=== PATIENT | male | born 1940 | race Caucasian/White ===

== ENCOUNTER 2022-08-27 10:03 | Outpatient (CLI) | payer MEDICARE, SELFPAY ==
[2022-08-27 10:56] LABS: Albumin* 4.7 g/dL (3.3-5.0)
[2022-08-27 10:57] LABS: Chloride* 103 mmol/L (96-114); Potassium* 4.2 mmol/L (3.6-5.1); Sodium* 140 mmol/L (135-149)
[2022-08-27 10:59] LABS: Aspartate Amino Transferase* 22 U/L (12-35); Bilirubin Total* 1.1 mg/dL (0.1-1.5); Blood Urea Nitrogen* 25 mg/dL (7-30); Carbon Dioxide* 29 mmol/L (20-32); Cholesterol* 199 mg/dL (90-199); Creatinine* 1.1 mg/dL (0.5-1.5); Estimated Glomerular Filt Rate 68 ml/min; Total Protein* 7.4 g/dL (6.0-8.3)
[2022-08-27 11:00] LABS: Alanine Aminotransferase* 18 U/L (4-50); Alkaline Phosphatase* 57 U/L (40-150); Calcium* 9.7 mg/dL (8.4-10.6); Glucose* 110 mg/dL (60-115); HDL Cholesterol* 63 mg/dL (>=40); LDL Cholesterol Calculated 117 mg/dL (<100); Triglycerides* 96 mg/dL (40-149)
[2022-08-27 11:29] LABS: PSA Screen* 4.07 ng/mL (0.10-4.00)
== END 2022-08-27 10:04 | disposition home or self-care (01) ==
PROVIDERS: PCP Family Medicine; Visit Provider Family Medicine
DX: Z00.00 Encounter for general adult medical examination without abnormal findings (principal); E78.5 Hyperlipidemia, unspecified; C61 Malignant neoplasm of prostate; I10 Essential (primary) hypertension
CPT/HCPCS: 80053; 80061; 84153

== ENCOUNTER 2023-09-03 09:08 | Outpatient (CLI) | payer MEDICARE, SELFPAY ==
--- OUTSIDE RECORDS SUMMARY | 2023-09-09 15:56 | XMS_ITS | Clinical Summary ---
Author Name Unknown Organization [facility] Address [place], [place] [address] Care Team Providers Care Bundle Packer Name Role Phone Haja Thomas Primary Care Provider Unavail able Allergies No known active allergies Medications Medication Sig Dispensed Refills Start Date End Date Status TRIAMTERENE-HYDROCHL OROTHIAZIDE 37.5 MG-25 MG CAP 1 tab q day 0 07/31/2008 Active LISINOPRIL 20 MG TAB 1 tab q day 0 07/31/2008 Act peng TRAVATAN Z 0.004 % EYE DROPS 1 drop at HS in each eye 0 07/31/2008 Active diazepam (VALIUM) 10 mg tablet Take 1 tablet by mouth. Take 1 tab 1 hour prior to procedure 1 tablet 0 09/15/2011 Active diazepam (VALIUM) 10 mg tablet Take 1 tab 1 hour prior to procedure. 1 tablet 0 02/07/2013 Active Active Problems Problem Noted Date Diagnosed Date Benign neoplasm of colon 08/26/2009 Overview: Colonoscopy 07/2009 polyps repeat in 3 years Colonoscopy 04/2013 hyperplastic polyp repeat in 5 years Social History Tobacco Use Types Packs/Day Years Used Date Smoking Tobacco: Former Cigarettes Q uit: 08/23/1995 Smokeless Tobacco: Never Tobacco Cessation:Counseling Given: Yes Comments:quit 1994 Alcohol Use Standard Drinks/Week Comments Yes 0 (1 standard drink = 0.6 oz pur e alcohol) occ Sex and Gender Information Value Date Recorded Sex Assigned at Not on file Gender Identity Not on file Sexual Orientation Not on file Obstetrics History Last Filed Vital Signs Vital Sign Reading Time Taken Comments Blood Pressure 159/77 05/23/2013 8:44 AM CDT Pulse 62 05/23/2013 8:44 AM CDT Temperature 36.8 ??C (98.2 ??F) 05/23/2013 8:42 AM CD T Respiratory Rate - - Oxygen Saturation 97% 05/23/2013 8:42 AM CDT Inhaled Oxygen Concentration - - Weight 82.8 kg (182 lb 9.6 oz) 05/23/2013 8:42 A M CDT Height 172.7 cm (5' 8) 05/23/2013 8:42 AM CDT Body Mass Index 27.76 05/23/2013 8:42 AM CDT Plan of Treatment Health Maintenance Due Date Last Done Comments COVID-19 vaccine series (#1) 1942 Tdap 1953 Depression screening for age 12+ 1954 BMI (ht and wt on same day) for age 18+ 1960 Tetanus booster 1962 Zoster (shingles) series for age 50+ (1 of 2) 06/17/19 92 Pneumococcal series for age 65+ (1 of 1 - PCV) 007 Influenza for age 65+ 04/23/2023 Care Teams Bundle Packer Relationship Specialty Start Date End Date Haja Thomas PCP - General 03/29/06
--- OUTSIDE RECORDS SUMMARY | 2023-09-09 15:56 | XMS_ITS | Clinical Summary ---
Author Name Unknown Organization [facility] Address [address] [place] [address] Care Team Providers Care Gas Engine Operator Name Role Phone Kai Thomas MD Primary Care Provider + [phone] Source Comments You are receiving this document as you are listed as the primary care provider,follow-up provider, or the patient has been referred to you for consultation.This is in compliance with the Medicare and[facility] EHR Incentive Program,which states Providers who transition their patient to another setting of careor provider of care or refers their patient to another provider of care shouldprovide summary care record for each transition of care or referral. [facility] Allerg[facility] No known active allergies Medications Medication Sig Dispensed Refills Start Date End Date Status dorzolamide-timolol (COSOPT) 22.3-6.8 MG/ML eye drop solution Place 1 Drop into both eyes two times a day. 98 12/15/2018 Active ketoconazole (NIZORAL) 2 % shampoo 120 mL 11 12/15/2018 Active hydroCHLOROthiazide 12.5 MG capsule Take 1 Capsule by mouth daily. 90 Capsule 3 12/15/2018 Active lisinopril (ZESTRIL) 40 MG tablet Take 1 Tablet by mouth daily. 90 Tablet 3 12/15/2018 Active metoprolol tartrate (LOPRESSOR) 25 MG tablet Take 1 Tablet by mouth two times a day. 180 Tablet 3 12/15/2018 Active latanoprost (XALATAN) 0.005 % eye drop solution Place 1 Drop into both eyes every evening. 0 12/15/2018 Active aspirin 81 MG tablet Take 1 Tablet by mouth daily. 100 Tablet 3 12/15/2018 Active Active Problems Problem Noted Date Diagnosed Date Essential hypertension 01/03/2019 History of prostate cancer 01/03/2019 History of degenerative disc disease 01/03/2019 Osteoarthritis of multiple joints 01/03/2019 Tear of medial meniscus of knee joint 01/03/2019 Tobacco use 01/03/2019 Polyp of colon 01/03/2019 Bilateral renal cysts 01/03/2019 Diverticulosis of intestine without bleeding Family history of colon cancer 01/03/2019 Hyperlipidemia 01/03/2019 Glaucoma 01/03/2019 Nephrolithiasis 01/03/2019 Mitral valve insufficiency 01/03/2019 History of mitral valve repair 01/03/2019 Pulmonary nodule 01/03/2019 Psoriasis 01/03/2019 Social History Tobacco Use Types Packs/Day Years Used Date Smoking Tobacco: Former Smokeless Tobacco: Never Alcohol Use Standard Drinks/Week Comments Yes 0 (1 standard drink = 0.6 oz pur e alcohol) very little Sex and Gender Information Value Date Recorded Sex Assigned at Not on file Gender Identity Not on file Sexual Orientation Not on file Last Filed Vital Signs Vital Sign Reading Time Taken Comments Blood Pressure 181/82 01/03/2019 9:12 AM CDT Pulse 56 01/03/2019 9:12 AM CDT Temperature - - Respiratory Rate - - Oxygen Saturation - - Inhaled Oxygen Concentration - - Weight 85.3 kg (188 lb) 01/03/2019 9:12 AM CDT Height 175.3 cm (5' 9) 01/03/2019 9:12 AM CDT Body Mass Index 27.76 01/03/2019 9:12 AM CDT Plan of Treatment Health Maintenance Due Date Last Done Comments COVID-19 Vaccine (#1) 1942 Adult Preventive Visit 1960 Zoster/Shingles (2 of 2) 02/01/2021 12/07/2020 Influenza (#1) 2023 05/24/2019, 0803/2018, 04/10/2017, Additional history exists DTaP/Tdap/Td (2 - Tdap) 09/19/2028 09/19/2018 Pneumococcal 65+ Yrs Completed 09/02/2015, 08/22/20 14 HepA Aged Out No longer eligi ble based on patient's age to complete this topic HepB Aged Out No longer eligi ble based on patient's age to complete this topic Hib Aged Out No longer eligi ble based on patient's age to complete this topic IPV (Polio) Aged Out No longer eligi ble based on patient's age to complete this topic MCV4 Aged Out No longer eligi ble based on patient's age to complete this topic Care Teams Gas Engine Operator Relationship Specialty Start Date End Date Kai Thomas MD [address] [place] [address] PCP - General 12/13/18
== END 2023-09-03 09:09 | disposition home or self-care (01) ==
LOC: NFLDREF 09-09 15:53
PROVIDERS: PCP Family Medicine; Referring Provider Family Medicine; Visit Provider Family Medicine
DX: E78.5 Hyperlipidemia, unspecified (principal); Z12.5 Encounter for screening for malignant neoplasm of prostate
CPT/HCPCS: 80053; 80061; G0103

== ENCOUNTER 2024-05-02 08:57 | Emergency (ER) | payer MEDICARE, SELFPAY ==
[2024-05-02 09:01] VITALS: BP 141/78; PULSE 69; RESP 17; TEMP 37.1; O2SAT 97; BMI 27.4
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
--- NOTE | 2024-05-02 09:13 | CRLHL7_ITS ---
For Patients: As a result of the Cures Act, medical imaging exams and procedure reports are released immediately into your electronic medical record. You may view this report before your referring provider. If you have questions, please contact your health care provider. INDICATION: Right lower anterior rib pain COMPARISON: None. TECHNIQUE: Three views chest and right ribs. FINDINGS: Acute appearing nondisplaced anterolateral right 8th and 9th rib fractures. No other fracture seen. Postoperative Fowler. Valve prosthesis or valve support. Median sternotomy wires. Atherosclerotic vascular calcifications. No focal or diffuse lung opacities. No pneumothorax. No pleural effusion. IMPRESSION: Acute nondisplaced right 8th and 9th rib fractures. No pneumothorax or hemothorax. Dictated by Shital Borden MD @ 05/02/2024 9:47:58 AM (Electronically Signed)
--- OUTSIDE RECORDS SUMMARY | 2024-05-02 09:24 | XMS_ITS | Clinical Summary ---
Author Organization [employer] Address [address] [place] [address] Care Team Providers Care Construction Quality Control Manager Name Role Phone Kai Thomas MD Primary Care Provider [phone] Source Comments You are receiving this document as you are listed as the primary care provider,follow-up provider, or the patient has been referred to you for consultation.This is in compliance with the Medicare and[facility] EHR Incentive Program,which states Providers who transition their patient to another setting of careor provider of care or refers their patient to another provider of care shouldprovide summary care record for each transition of care or referral. [employer] Allergies No known active allergies Medications Medication [...] 1 Drop into both eyes every evening. 12/15/2018 Active aspirin 81 MG tablet Take [...] Health Maintenance Due Date Last Done Comments Adult Preventive Visit 1960 Zoster/Shingles (2 of 2) 02/01/2021 12/07/2020 COVID-19 Vaccine ( season) 2024 10/26/2020, 10/05/2020 Influenza (#1) 2024 05/24/2019, 03/23, 04/10/2017, Additional history exists DTaP/Tdap/Td (2 - [...] age to complete this topic Care Teams Construction Quality Control Manager Relationship Specialty Start Date End Date Kai Thomas MD [address] [place] [address] PCP - General 12/13/18
--- OUTSIDE RECORDS SUMMARY | 2024-05-02 09:24 | XMS_ITS | Clinical Summary ---
Author Organization [employer] [facility] Address [place], [place] [address] Care Team Providers Care Superintendent Geophysical Laboratory Name Role Phone Haja Thomas Primary Care [...] Diagnosed Date Benign neoplasm of colon 08/26/2009 Overview (05/24/2013): Colonoscopy 07/2009 polyps repeat in 3 years [...] Health Maintenance Due Date Last Done Comments Tdap 1951 Depression screening for age 12+ 1954 BMI (ht and wt on same day) for age 18+ 1960 Tetanus booster 1962 Zoster (shingles) series for age 50+ (1 of 2) 06/17/19 92 RSV vaccine for adults or pr egnancy (1 - 1-dose 60+ series) 2002 Pneumococcal series for age 65+ (1 of 1 - PCV) 007 COVID-19 vaccine series ( - 2022-24 season) 4 Influenza for age 65+ 04/23/2024 Care Teams Superintendent Geophysical Laboratory Relationship Specialty Start Date End Date Haja Thomas PCP - General 03/29/06
== END 2024-05-02 10:20 | disposition home or self-care (01) ==
PROVIDERS: Emergency Provider Family Medicine; PCP Family Medicine
DX: S22.41XA Multiple fractures of ribs, right side, initial encounter for closed fracture (principal); W30.89XA Contact with other specified agricultural machinery, initial encounter
CPT/HCPCS: 71101; 99283; 99284

== ENCOUNTER 2024-08-14 09:11 | Outpatient (CLI) | payer MEDICARE, SELFPAY | END 2024-08-14 09:12 | disposition home or self-care (01) | LOC: NFLDREF 18:57 | PROVIDERS: PCP Family Medicine; Referring Provider Family Medicine; Visit Provider Family Medicine | DX: Z12.5 Encounter for screening for malignant neoplasm of prostate (principal); E78.5 Hyperlipidemia, unspecified; I10 Essential (primary) hypertension | CPT/HCPCS: 80053; 80061; G0103 ==

== ENCOUNTER 2024-11-15 11:00 | Outpatient (RCR) | payer MEDICARE, SELFPAY ==
--- NOTE | 2024-11-02 12:08 | PT.OPEX ---
PT [facility] Eval PT [facility] Outpatient Eval Start: 11/02/24 07:16 Freq: Status: Active Protocol: Document 11/02/24 12:04 TRISHA (Rec: 11/02/24 12:05 TRISHA [id number]) E-signed By Dominik Ramon DPT Physical Therapy Outpatient Evaluation Insurance Information Recert Due Date 01/31/25 Insurance Name Medicare B Medical Diagnosis tendinitis of R hip abd Treating Diagnosis Rt hip pain muscle weakness Referring MD Carlton garcia Subjective Subjective Janes comes into clinic dealing with R hip pain lasting the last 1-2 months approximately. Does have history of SAPPHIRE 03/2021. Does feel like it has improved somewhat since initial onset. Sleeping on is R side was originally hard but has improved. Walking and standing prolonged periods can irritate symptoms causing him needing to sit to rest and offload . Has had a few moments of NT in the R anterior leg nothing recently. Soft surfaces are harder to sit on for prolonged periods vs firm. Intermittent low back pain but nothing of note the last week Pain Comments -04/01 Current Work Status Retired Precautions Weight Bearing Status Full Weight Bearing Objective Other/Pertinent Objective Gait ambulates with mild antalgic pattern with increased trunk lean over R leg HIP PROM R wnl ON L Flexion: knee extended 60 degrees, knee flexed 100 degrees Extension: neutral Internal Rotation: 10-15 deg External Rotation 30-35 degrees Abduction LLE MMT: Hip flexion: R 4/5 L4+/5 Hip abduction: R 4/5 L 4+/5 knee extension: R 5/5 L5/5 Knee Flexion: R 5/5 L5/5 SPECIAL TEST Kirk Compression:- ESTHER test: - FADIR test: - Scour test: - JOINT MOBILITY/PALPATION increased tenderness along glute max-med and piriformis on R Assessment Assessment/Impression Pt is a 84 yr old male who presents with concerns of Rt hip pain. Patient also has notable objective findings including limited ROM, impaired balance, decreased strength also likely contributing to the problem. Patient is a good candidate for skilled therapy to target deficits described above. Skilled PT intervention is necessary for use of therapeutic exercise manual therapy, neuromuscular re- education, gait training, and therapeutic activity. Functional impairments include difficulty with: walking standing sleeping. See appropriate sections of PT eval for complete list of goals and POC. D/C plan and criteria is for pt to achieve the goals as listed below or until max rehab potential is met. Pt was agreeable with plan of care and goals established. Plan of Care Rehabilitation Potential Good Physical Therapy Goals GOALS Pt will be independent with HEP within 8 weeks to allow for independence and continued improvement past formal therapy Patient will demonstrate/ report ability to sleep with losing <1 hours of sleep being interrupted by hip pain. within 8 weeks Patient will demonstrate/ report ability to stand for 15 -30 minutes with pain level <1 /10, to allow for home , recreational and work tasks within 8 weeks Patient will demonstrate/ report ability to walk for 30 minutes with pain level <1/10, to allow for community and household ambulation within 8 weeks Coordination/Communication With Referral Source Treatment Plan/Direct Interventions Gait Training,Joint Mobilization,Manual Therapy, Neuromuscular Re-ed, Therapeutic Activities, Therapeutic Exercises Frequency/Duration 1-2 visits a week for 8 weeks with decreasing frequency as able Evaluation Billing Untimed Code Treatment Minutes 15 Complexity Low Certification Information Initial Certification Date 11/02/24 Ending Certification Date 01/31/25 Provider Signature Required Yes Provider Signature Shows Agreement With POC & Medical Necessity Physician NPI Number Write NPI# Here Physician Comment/Change : Physician Signature & Date Requested Please Sign/Date Here
== END 2025-03-15 23:59 | disposition home or self-care (01) ==
PROVIDERS: PCP Family Medicine; Visit Provider Orthopaedic Surgery Sports Medicine
DX: M76.891 Other specified enthesopathies of right lower limb, excluding foot (principal); M25.551 Pain in right hip; Z51.89 Encounter for other specified aftercare
CPT/HCPCS: 97110; 97140; 97161